=== PATIENT | female | born 1965 | race Two or more races ===

== ENCOUNTER 2018-07-25 09:25 | Emergency (ER) | payer OTHER ==
[~2018-07-25] VITALS: Ht 160 cm; Wt 88.5 kg
[2018-07-25] MEDS ORDERED: SYNTHROID75 MCG (09:42)
== END 2018-07-25 15:19 | disposition home or self-care (01) ==
LOC: ER 09:25
DX: S83.8X1A Sprain of other specified parts of right knee, initial encounter (principal); M79.661 Pain in right lower leg; X50.0XXA Overexertion from strenuous movement or load, initial encounter; Y93.89 Activity, other specified; Y92.018 Other place in single-family (private) house as the place of occurrence of the external cause; Y99.8 Other external cause status

== ENCOUNTER 2021-06-16 15:13 | Emergency (ER) | payer OTHER ==
[~2021-06-16] VITALS: Ht 160 cm; Wt 83.0 kg
[~2021-06-16 15:13] MED LIST: SYNTHROID75 MCG
[2021-06-16] MEDS ORDERED: SYNTHROID112 MCG (16:20)
[2021-06-16] MEDS ORDERED: AVAPRO150 MG (16:20)
[2021-06-16] MEDS ORDERED: DICLOFENAC SODI75 MG PO (20:12)
== END 2021-06-16 20:20 | disposition home or self-care (01) ==
LOC: ER 15:13
DX: R10.9 Unspecified abdominal pain (principal)

== ENCOUNTER 2024-01-20 11:06 | Emergency (ER) | payer OTHER ==
[~2024-01-20] VITALS: Ht 160 cm; Wt 90.7 kg
[~2024-01-20 11:06] MED LIST changes: +AVAPRO150 MG; +DICLOFENAC SODI75 MG PO; +SYNTHROID112 MCG
[2024-01-20 11:52] VITALS: BP 115/80; O2SAT 98
[2024-01-20] MEDS ORDERED: CRESTOR40 MG (11:52)
[2024-01-20 13:05] LABS: HEMATOCRIT 36.4 % (36.0-45.00); HEMOGLOBIN 12.1 g/dL (12.0-15.00); MEAN CELL VOLUME 84.9 fL (80.00-100.00); MEAN CORPUSCULAR HEMOGLOBIN 28.3 pg (27.00-32.0); MEAN CORPUSCULAR HGB CONC 33.4 g/dl (32.0-36.0); PLATELET COUNT 446 K/uL (150-450); RED BLOOD COUNT 4.28 M/uL (4.00-6.00); RED CELL DISTRIBUTION WIDTH 14.1 % (11.5-14.5)
[2024-01-20 13:39] LABS: PH,URINE 5.5 (5.0-8.0); URINE APPEARANCE Clear; URINE BILIRRUBIN Negative (NEGATIVE); URINE BLOOD Trace; URINE COLOR Yellow; URINE GLUCOSE Negative (NEGATIVE); URINE KETONE Trace (NEGATIVE); URINE LEUKOCYTE Negative; URINE NITRATE Negative; URINE PROTEIN Negative (NEGATIVE); URINE UROBILINOGEN 0.2 E.U./dl
[2024-01-20 13:43] LABS: URINE BACTERIA 943.6 uL (0.0-1933); URINE EPITHELIAL CELLS 9.8 uL (0.0-38.8); URINE RBC 5.1 uL (0.0-20.8)
[2024-01-20 14:05] LABS: CALCIUM 9.4 mg/dL (8.5-10.1); CREATININE SERUM 0.81 mg/dL (0.55-1.02); GFR 72.88; POTASSIUM 3.63 mEq/L (3.5-5.1)
[2024-01-20] MEDS ORDERED: PROBIOTIC1 EACH PO (17:14)
== END 2024-01-20 17:41 | disposition home or self-care (01) ==
LOC: ER 11:08
PROVIDERS: Emergency Medicine
DX: K59.00 Constipation, unspecified (principal); R10.9 Unspecified abdominal pain; I10 Essential (primary) hypertension; E03.8 Other specified hypothyroidism; Z88.5 Allergy status to narcotic agent; Z88.6 Allergy status to analgesic agent
CPT/HCPCS: 36415; 74177; 99284; Q9965